=== PATIENT | male | born 2005 | race Caucasian/White ===

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

== ENCOUNTER → 2023-01-04 13:26 | Outpatient (BNVA) | payer SELFPAY | PROVIDERS: Visit Provider Nurse Practitioner Family | DX: J02.9 Acute pharyngitis, unspecified (principal) | CPT/HCPCS: 87071; 87880 ==

== ENCOUNTER 2023-09-19 00:05 | Emergency (ER) | payer OTHER, SELFPAY ==
[2023-09-19 00:08] VITALS: BP 165/92; PULSE 92; RESP 18; TEMP 36.7; O2SAT 100; BMI 30.5
[2023-09-19 00:56] LABS: Basophils # 0.1 10^3/uL (0.0-0.1); Basophils % 0.5 %; Eosinophils # 0.2 10^3/uL (0.0-0.8); Eosinophils % 1.5 %; Hematocrit 41.8 % (37-53); Lymphocytes # 1.9 10^3/uL (1.5-6.5); Mean Corpuscular HGB Conc 33.7 g/dL (30-55); Mean Corpuscular Hemoglobin 28.5 pg (27-33); Mean Corpuscular Volume 84.4 fl (82-101); Mean Platelet Volume 9.7 fL (7.4-10.4); Monocytes # 0.7 10^3/uL (0.2-0.9); Monocytes % 7.6 %; Neutrophils # 6.79 10^3/uL (1.8-8.0); Neutrophils % 70.1 %; Nucleated Red Blood Cells % 0 %; Platelet Count 308 10^3/cmm (157-399); Red Blood Count 4.95 10^6/uL (3.85-5.65)
--- NOTE | 2023-09-19 00:56 | ED_ITS ---
HPI - Abdominal Pain General: Chief Complaint: Abdominal Pain Stated Complaint: Lower Rt Side Pain Time Seen by Provider: 09/19/23 00:51 History of Present Illness: patient presents to the ER with complaints of right lower quadrant pain that started approximately 3 to 4 days ago. When his pain started patient does have nausea vomiting diarrhea intermittently. Patient rates his pain a 6 out of 10 dull ache most of the time but can be sharp and stabbing in nature. Patient has never had any abdominal surgery so he still has his gallbladder and appendix. PFSH ED PFSH: Social History Smoking and tobacco/nicotine status: never used tobacco/nicotine Second hand smoke exposure: No Alcohol intake: never Substance/Drug Use: never Physical Exam Const: COMMON NORMALS: no acute distress, average body habitus, patient oriented x3, no limitations, healthy appearing, alert and well nourished HENMT: COMMON NORMALS: normocephalic, atraumatic, hearing grossly normal bilaterally, external ears normal, Normal external nose present, moist oral mucous membranes and oropharynx normal HEAD & SCALP: normocephalic and atraumatic NOSE: Normal external nose present EXTERNAL EAR: Yes external ears normal Neck/C-Spine: COMMON NORMALS: full ROM, no lymphadenopathy, supple, no meningeal signs, no JVD and Thyroid normal THYROID: Thyroid normal Chest: COMMONS NORMALS: normal inspection of the chest and normal palpation of entire chest wall Resp: COMMON NORMALS: normal respiratory effort, No retractions, No use of accessory muscles and clear to auscultation bilaterally AUSCULTATION: clear to auscultation bilaterally Cardio: COMMON NORMALS: no JVD, regular rate, regular rhythm, S1 normal heart sound present, S2 normal heart sound present, No gallops present (Cardio), No clicks present (Cardio), No murmurs present (Cardio) and No rub (Cardio) RATE: regular rate RHYTHM: regular rhythm HEART SOUNDS: S1 normal heart sound present and S2 normal heart sound present GI: COMMON NORMALS: Normal to inspection, nondistended, normoactive bowel sounds present, Soft to palpation, No hepatosplenomegaly present and no masses; negative for non-tender ( Minimal tenderness to right lower quadrant palpation. ) PALPATION: Yes Soft to palpation and Yes No hepatosplenomegaly present OTHER: no rebound guarding or rigidity Neuro: COMMON NORMALS: patient oriented x3 SENSORIUM/ORIENTATION: Yes alert MENINGEAL SIGNS: Yes no meningeal signs Course Vital Signs: Vital signs: Vital Signs Temperature 98.0 F 09/19/23 00:08 Pulse Rate 92 09/19/23 00:08 Respiratory Rate 18 09/19/23 00:08 Blood Pressure 165/92 09/19/23 00:08 Pulse Oximetry 100 09/19/23 00:08 Oxygen Delivery Me thod Room Air 09/19/23 00:08 MDM - Abdominal Pain Medical Decision Making Patient presents to the ER with right lower quadrant abdominal pain. Patient was worked up including physical exam lab work urinalysis and CT of the abdomen pelvis with contrast. all of these did not show any signs of recent he is having acute right lower quadrant abdominal pain. Patient appears nontoxic. Patient be discharged back to his family practice physician for further evaluation testing. Differential Diagnosis Likely abdominal pain; Unlikely acute appendicitis, calculus of kidney, const ipation, diverticulitis, endometriosis, gastroenteritis, pancreatitis or small bowel obstruction Medical Records I reviewed the patient's medical records. Lab Data I reviewed the patient's lab results. 09/19/23 00:51 09/19/23 00:51 Labs/Radiology: Radiology Impressions Abdomen/Pelvis CT 09/19/23 01:16 IMPRESSION: 1. No bowel obstruction or inflammatory process associated with the bowel. 2. No free air or significant free fluid in the abdomen or pelvis. 3. The appendix images normally. Laboratory Results WBC 9.70 10^3/uL (4.5-13.0) 09/19/23 00:51 RBC 4.95 10^6/uL (3.85-5.65) 09/19/23 00:51 Hgb 14.10 g/dL (13.2-15.6) 09/19/23 00:51 Hct 41.8 % (37-53) 09/19/23 00:51 MCV 84.4 fl (82-101) 09/19/23 00:51 MCH 28.5 pg (27-33) 09/19/23 00:51 MCHC 33.7 g/dL (30-55) 09/19/23 00:51 RDW 12.0 % (12.1-15.1) L 09/19/23 00:51 Plt Count 308 10^3/cmm (157-399) 09/19/23 00:51 MPV 9.7 fL (7.4-10.4) 09/19/23 00:51 Neut % (Auto) 70.1 % 09/19/23 00:51 Lymph % (Auto) 20.0 % 09/19/23 00:51 [place] % (Auto) 7.6 % 09/19/23 00:51 Eos % (Auto) 1.5 % 09/19/23 00:51 Baso % (Auto) 0.5 % 09/19/23 00:51 Neut # (Auto) 6.79 10^3/uL (1.8-8.0) 09/19/23 00:51 Lymph # (Auto) 1.9 10^3/uL (1.5-6.5) 09/19/23 00:51 [place] # (Auto) 0.7 10^3/uL (0.2-0.9) 09/19/23 00:51 Eos # (Auto) 0.2 10^3/uL (0.0-0.8) 09/19/23 00:51 Baso # (Auto) 0.1 10^3/uL (0.0-0.1) 09/19/23 00:51 Nucleated RBC % (auto) 0 % 09/19/23 00:51 Nucleated RBCs # 0.0 /100WBC 09/19/23 00:51 Sodium 140 mmol/L (136-145) 09/19/23 00:51 Potassium 3.7 mmol/L (3.5-5.1) 09/19/23 00:51 Chloride 103 mmol/L (98-107) 09/19/23 00:51 Carbon Dioxide 26 mmol/L (22-29) 09/19/23 00:51 Anion Gap 14.7 (5-19) 09/19/23 00:51 BUN 10 mg/dL (6-20) 09/19/23 00:51 Creatinine 0.9 mg/dL (0.7-1.2) 09/19/23 00:51 GFR Calculation 107.6 mL/min (90-130) 09/19/23 00:51 Glucose 92 mg/dL (65-115) 09/19/23 00:51 Calculated Osmolality 289 mOsm/kg (285-295) 09/19/23 00:51 Calcium 9.7 mg/dL (8.5-10.5) 09/19/23 00:51 Total Bilirubin 0.7 mg/dL (0.15-1.2) 09/19/23 00:51 AST 18 U/L (0-40) 09/19/23 00:51 ALT 27 U/L (0-41) 09/19/23 00:51 Alkaline Phosphatase 95 U/L (40-130) 09/19/23 00:51 C-Reactive Protein 4.0 mg/L (0.0-4.9) 09/19/23 00:51 Total Protein 7.6 g/dL (6.6-8.7) 09/19/23 00:51 Albumin 4.7 g/dL (3.5-5.2) 09/19/23 00:51 Globulin 2.9 g/dL (1.3-4.6) 09/19/23 00:51 Lipase 18 U/L (13-60) 09/19/23 00:51 Urine Color Yellow (Yellow) 09/19/23 02:55 Urine Appearance Clear (CLEAR) 09/19/23 02:55 Urine pH 7 (5-7) 09/19/23 02:55 Ur Specific [place] 1.005 (1.005-1.030) 09/19/23 02:55 Urine Protein Neg (Negative) 09/19/23 02:55 Urine Glucose (UA) Norm (Normal) 09/19/23 02:55 Urine Ketones Negative (Negative) 09/19/23 02:55 Urine Blood Neg (Negative) 09/19/23 02:55 Urine Nitrate Negative (Negative) 09/19/23 02:55 Urine Bilirubin Neg (Negative) 09/19/23 02:55 Urine Urobilinogen Norm mg/dL (Negative) 09/19/23 02:55 Ur Leukocyte Esterase Negative (Negative) 09/19/23 02:55 All radiology interpretation(s) finalized by discharge Discharge Plan Discharge Patient Disposition: Home Clinical Impression: Abdominal pain, acute, right lower quadrant Condition: Stable Prescriptions: No Action No Known Home Medications Discharge Orders: Discharge ED (Routine); Ordered 09/19/23 Ordered By: Dhiraj Maxwell Patient Instructions: Abdominal Pain (ED) Activity Restrictions/Additional Instructions: your workup in ER did not reveal any acute cause of your abdominal pain. Coding Level of Care Code ED Internet Site Designer for Zaid Glasgow
[2023-09-19 01:14] LABS: Alanine Aminotransferase 27 U/L (0-41); Albumin Level 4.7 g/dL (3.5-5.2); Alkaline Phosphatase 95 U/L (40-130); Anion Gap 14.7 (5-19); Aspartate Amino Transferase 18 U/L (0-40); Blood Urea Nitrogen 10 mg/dL (6-20); Calcium 9.7 mg/dL (8.5-10.5); Carbon Dioxide 26 mmol/L (22-29); Chloride 103 mmol/L (98-107); Globulin 2.9 g/dL (1.3-4.6); Glomerular Filtration Rate 107.6 mL/min (90-130); Glucose 92 mg/dL (65-115); Lipase 18 U/L (13-60); Osmolality Calculated 289 mOsm/kg (285-295); Potassium 3.7 mmol/L (3.5-5.1); Sodium 140 mmol/L (136-145); Total Bilirubin 0.7 mg/dL (0.15-1.2); Total Protein 7.6 g/dL (6.6-8.7)
--- NOTE | 2023-09-19 01:16 | CTR_ITS ---
PROCEDURE INFORMATION: Exam: CT Abdomen And Pelvis With Contrast Exam date and time: 09/19/2023 2:03 AM Age: 18 years old Clinical indication: Abdominal pain; Localized; Right lower quadrant (rlq); Additional info: Rlq abd pain TECHNIQUE: Imaging protocol: Computed tomography of the abdomen and pelvis with contrast. Radiation optimization: All CT scans at this facility use at least one of these dose optimization techniques: automated exposure control; mA and/or kV adjustment per patient size (includes targeted exams where dose is matched to clinical indication); or iterative reconstruction. Contrast material: OMNI 350; Contrast volume: 100 ml; Contrast route: INTRAVENOUS (IV); REPORTING DATA: Count of CT and Cardiac NM exams in prior 12 months: This patient has received 0 known CTs and 0 known cardiac nuclear medicine studies in the 12 months prior to the current study. COMPARISON: No relevant prior studies available. RADIATION DOSE METRICS: Total DLP (mGy-cm): 815.64 FINDINGS: Liver: Normal. No mass. Gallbladder and bile ducts: Normal. No calcified stones. No ductal dilation. Pancreas: Normal. No ductal dilation. Spleen: Normal. No splenomegaly. Adrenal glands: Normal. No mass. Kidneys and ureters: Normal. No hydronephrosis. Stomach and bowel: Unremarkable. No obstruction. No mucosal thickening. Appendix: No evidence of appendicitis. Intraperitoneal space: Unremarkable. No free air. No significant fluid collection. Vasculature: Unremarkable. No abdominal aortic aneurysm. Lymph nodes: Unremarkable. No enlarged lymph nodes. Urinary bladder: Unremarkable as visualized. Reproductive: Unremarkable as visualized. Bones/joints: Unremarkable. No acute fracture. Soft tissues: Unremarkable. CT/CT abdomen pelvis w con* [id number] IMPRESSION: 1. No bowel obstruction or inflammatory process associated with the bowel. 2. No free air or significant free fluid in the abdomen or pelvis. 3. The appendix images normally.
[2023-09-19] MEDS: iohexol 350 mg/mL 500 mL Btl (per mL) IV (02:10)
[2023-09-19 02:19] VITALS: BP 136/62; PULSE 84; O2SAT 98
[2023-09-19 02:30] VITALS: BP 137/66; PULSE 82; O2SAT 99
[2023-09-19 03:00] VITALS: BP 141/71; PULSE 89; O2SAT 100
[2023-09-19 03:13] LABS: Add Urine Microscopic? NO; Charge for UA Resulting for Rev
[2023-09-19 03:20] LABS: Bilirubin Urine Neg (Negative); Blood Urine Neg (Negative); Glucose Urine UA Norm (Normal); Ketones Urine Negative (Negative); Leukocyte Esterase Urine Negative (Negative); Nitrate Urine Negative (Negative); Protein Urine Neg (Negative); Specific Gravity, Urine 1.005 (1.005-1.030); Urine Appearance Clear (CLEAR); Urine Color Yellow (Yellow); Urobilinogen Urine Norm (Negative); pH Urine 7 (5-7)
[2023-09-19 03:56] VITALS: BP 137/70; PULSE 90; O2SAT 100
== END 2023-09-19 03:56 | disposition home or self-care (01) ==
PROVIDERS: Emergency Provider Emergency Medicine
DX: R10.11 Right upper quadrant pain (principal)
CPT/HCPCS: 36415; 74177; 80053; 81003; 83690; 85025; 86140; 99285; Q9967